=== PATIENT | male | born 1935 | race Caucasian/White ===

== ENCOUNTER 2024-03-30 07:43 | Day surgery (SDC) | payer MEDICARE ==
[2024-03-25 11:42] LABS: EOSINOPHILS # (AUTO) 0.2 X10'3 (0-0.9); LYMPHOCYTES # (AUTO) 1.7 X10'3 (1.1-4.8); MEAN CORPUSCULAR VOLUME 95.4 FL (78-98); MONOCYTES # (AUTO) 0.6 X10'3 (0-0.9); NEUTROPHILS # (AUTO) 2.3 X10'3 (1.8-7.7); NEUTROPHILS % (AUTO) 47.7 % (42-75); PRE OP HEMOGLOBIN 12.6 g/dL (14.0-17.9); PRE OP WHITE BLOOD COUNT 4.8 10'3 (4.8-10.8)
[2024-03-25 11:44] LABS: BASOPHILS % (AUTO) 0.5 % (0-1); LYMPHOCYTES % (AUTO) 35.3 % (21-51); MEAN CORPUSCULAR HEMOGLOBIN 32.4 PG (27.0-31.0); MONOCYTES % (AUTO) 12.5 % (2-12); PRE OP PLATELET COUNT 126 X10'3 (140-440); RED BLOOD COUNT 3.88 X10'6 (4.70-6.10)
[2024-03-25 11:59] LABS: ALBUMIN 3.5 G/DL (3.4-5.0); ALBUMIN/GLOBULIN RATIO 0.9 (1.1-1.5); ALKALINE PHOSPHATASE 99 IU/L (46-116); BLOOD UREA NITROGEN 15 MG/DL (7-18); BUN/CREATININE RATIO 14.9 (10.0-20.0); CHLORIDE 106 MMOL/L (99-107); CREATININE 1.01 MG/DL (0.60-1.10); PRE OP ALT 27 U/L (30-65); PRE OP ANION GAP 5 (8-16); PRE OP AST 27 U/L (10-37); PRE OP BILIRUB, TOTAL 0.9 MG/DL (0.0-1.0); PRE OP POTASSIUM 4.2 MMOL/L (3.4-5.1); PRE OP SODIUM 139 MMOL/L (135-145); TOTAL CARBON DIOXIDE 27.9 MMOL/L (24-32); TOTAL PROTEIN 7.6 G/DL (6.4-8.2); eGFR 70 ML/MIN
[2024-03-25 12:13] LABS: PRE OP GLUCOSE 172 MG/DL (70-104)
[~2024-03-30] VITALS: Ht 167.6 cm; Wt 93.0 kg
[2024-03-30] VITALS (7 sets, daily range): BP systolic 111–152; BP diastolic 62–82; PULSE 66–85; RESP 10–17; TEMP 98.3; O2SAT 94–98
[2024-03-30] MEDS: ceFAZolin 2gm in dextrose, iso 50 ML IV ONE (05:30)
[~2024-03-30 07:43] MED LIST: AMLO5TAB16 PO; BUPIVAcaine/PF 2.5mg/ml (0.25%) 10ml vial ONE; FLO0.4C PO; GABA-530 PO; LIDOcaine 2% (20mg/ml) 5ml vial ONE
[2024-03-30] MEDS ORDERED: ringers solution, lacted 1,000 ML IV SCH (07:45)
[2024-03-30] MEDS ORDERED: hydrALAZINE 20mg/ml inj. IV PRN (07:45)
[2024-03-30] MEDS ORDERED: morphine 4 MG/ML inj SYRINge IV PRN (07:45)
[2024-03-30] MEDS ORDERED: ondansetron/PF 4mg/2ml inj IV PRN (07:45)
[2024-03-30] MEDS ORDERED: morphine 2 MG/ML inj. syringe IV PRN (07:45)
[2024-03-30] MEDS: famotidine 20mg tablet PO ONE (08:41)
[2024-03-30] MEDS: ringers solution, lacted 1,000 ML IV SCH (08:42)
[2024-03-30] MEDS ORDERED: fentaNYL/PF 50MCG/1 ML 2ML syringe ONE (09:24)
[2024-03-30] MEDS ORDERED: midazolam 1 mg/ML 2ml injection ONE (09:25)
[2024-03-30] MEDS ORDERED: LIDOcaine 1%/PF 5ML 10 MG/ML VIAL ONE (09:30)
[2024-03-30] MEDS ORDERED: LIDOcaine 0.5% (5mg/ml) 50ml vial ONE (09:30)
== END 2024-03-30 10:54 | disposition home or self-care (01) ==
LOC: PAS 07:43
PROVIDERS: ATTEND Orthopaedic Surgery Hand Surgery
DX: G56.22 Lesion of ulnar nerve, left upper limb (principal); I10 Essential (primary) hypertension; K21.9 Gastro-esophageal reflux disease without esophagitis; M19.90 Unspecified osteoarthritis, unspecified site; N40.0 Benign prostatic hyperplasia without lower urinary tract symptoms; Z79.899 Other long term (current) drug therapy; Z87.891 Personal history of nicotine dependence; Z98.890 Other specified postprocedural states; M47.22 Other spondylosis with radiculopathy, cervical region; Z98.49 Cataract extraction status, unspecified eye
CPT/HCPCS: 36415; 64718; 80053; 82948; 85025; 93005; A4215; A6449; J0690; J2003; J2250; J3010; J3490; J7030; J7120; Z7506; Z7512; Z7610